=== PATIENT | male | born 2000 | race Caucasian/White ===

== ENCOUNTER 2020-01-01 05:59 | Emergency (ER) | payer OTHER ==
[~2020-01-01] VITALS: Ht 175.3 cm; Wt 65.8 kg
[~2020-01-01 05:59] MED LIST: ADDERALL 20 MG20 M1 PO; CATAPRES0.1 MG PO; FOCALIN XR20 MG PO; RISPERDAL2 MG PO
[2020-01-01 06:03] VITALS: BP 103/49
[2020-01-01] MEDS ORDERED: AUGMENTIN 875-1 EACH PO (06:08)
== END 2020-01-01 06:29 | disposition home or self-care (01) ==
LOC: M.ERS 05:59
DX: S01.01XA Laceration without foreign body of scalp, initial encounter (principal); S41.152A Open bite of left upper arm, initial encounter; F90.9 Attention-deficit hyperactivity disorder, unspecified type; Z88.8 Allergy status to other drugs, medicaments and biological substances; Y04.1XXA Assault by human bite, initial encounter; Y93.89 Activity, other specified; Y92.89 Other specified places as the place of occurrence of the external cause; Y99.8 Other external cause status

== ENCOUNTER 2020-02-06 21:36 | Emergency (ER) | payer OTHER ==
[~2020-02-06] VITALS: Ht 175.3 cm; Wt 69.4 kg
[~2020-02-06 21:36] MED LIST changes: +AUGMENTIN 875-1 EACH PO
[2020-02-06 22:23] LABS: URINE BILIRUBIN NEGATIVE (Negative); URINE BLOOD NEGATIVE (Negative); URINE CLARITY CLEAR; URINE COLOR YELLOW; URINE GLUCOSE-RANDOM NEGATIVE (Negative); URINE KETONES NEGATIVE (Negative); URINE LEUKOCYTES NEGATIVE (Negative); URINE NITRITE NEGATIVE (Negative); URINE PROTEIN NEGATIVE (Negative); URINE UROBILINOGEN 0.2 E.U./dl (0.2-1.0)
[2020-02-06 22:30] LABS: HEMATOCRIT 41.5 % (42.0-52.0); HEMOGLOBIN 14.2 gm/dL (14.0-18.0); MCH 30.6 pg (26.0-34.0); MCHC 34.2 g/dL (28.0-37.0); MCV 89.5 fL (80.0-100.0); MPV 8.5 fl. (7.2-11.1); RBC 4.64 mil/uL (4.50-6.00); RDW-CV 12.8 % (10.5-14.5); WBC 6.7 thou/uL (4.0-11.0)
[2020-02-06 22:37] LABS: AMP/METHAMP Negative (Negative); BARBITURATES Negative (Negative); BENZODIAZEPINES POSITIVE (Negative); COCAINE Negative (Negative); METHADONE Negative (Negative); OPIATES Negative (Negative); PCP Negative (Negative); THC POSITIVE (Negative)
[2020-02-06 22:38] LABS: CALCIUM 8.2 mg/dL (8.5-10.1); CREATININE 1.2 mg/dL (0.6-1.3); POTASSIUM 4.1 mmol/L (3.5-5.1)
[2020-02-06 22:43] LABS: ALBUMIN 3.7 g/dL (3.4-5.0); TOTAL BILIRUBIN 0.3 mg/dL (<0.1-1.0); TOTAL PROTEIN 6.6 g/dL (6.4-8.2)
[2020-02-06 23:00] LABS: ACETAMINOPHEN < 2 ug/mL (10-30); ALCOHOL < 10 mg/dL (<10); SALICYLATE < 2.8 mg/dL (2.8-20.0)
[2020-02-07 06:08] VITALS: BP 112/72
--- NOTE | 2020-02-07 15:40 | EKG ---
[place] [address] ELECTROCARDIOGRAM REPORT Name: CRISTI BECERRA Room: [facility]#: [id number] Admission: 02/06/20 Attend Phys: Discharge: 02/07/20 Date of : 89 Date of Service: 02/06/202227 Report #: [id number] THIS REPORT FOR: //name// [facility] ED Test Date: 2020-02-06 Test Time: 22:28:40 Pat Name: CRISTI BECERRA Department: Room: Gender: Relay Adjuster: DERECK : 2000 Requested By: Amaya Ramsay Order Number: [id number] MD: Salvatore Jean Measurements Intervals [place] Rate: 70 P: 77 SC: 173 QRS: 70 QRSD: 78 T: 47 QT: 373 QTc: 403 Interpretive Statements Sinus rhythm ST elev, probable normal early repol pattern Compared to ECG 09/24/2013 19:24:15 ST (T wave) deviation now present Sinus arrhythmia no longer present Electronically Signed On 02-07-2020 15:39:47 CDT by Salvatore Jean [email or web address] <ELECTRONICALLY SIGNED> By: Salvatore Jean MD, [facility] 02/07/20 1539 [id number] Salvatore Jean MD, [facility] /EPI
== END 2020-02-07 06:08 | disposition still patient (30) ==
LOC: M.ERS 21:36
PROVIDERS: Personal Emergency Response Attendant
DX: T42.4X1A Poisoning by benzodiazepines, accidental (unintentional), initial encounter (principal); F90.9 Attention-deficit hyperactivity disorder, unspecified type; Y92.89 Other specified places as the place of occurrence of the external cause

== ENCOUNTER 2020-07-15 21:07 | Emergency (ER) | payer OTHER ==
[~2020-07-15] VITALS: Ht 175.3 cm; Wt 74.8 kg
[2020-07-15 21:45] LABS: URINE BILIRUBIN NEGATIVE (Negative); URINE BLOOD TRACE (Negative); URINE CLARITY CLEAR; URINE COLOR YELLOW; URINE GLUCOSE-RANDOM NEGATIVE (Negative); URINE KETONES NEGATIVE (Negative); URINE LEUKOCYTES NEGATIVE (Negative); URINE NITRITE NEGATIVE (Negative); URINE PROTEIN NEGATIVE (Negative); URINE UROBILINOGEN 0.2 E.U./dl (0.2-1.0)
[2020-07-15 21:50] LABS: HEMATOCRIT 40.2 % (42.0-52.0); HEMOGLOBIN 13.7 gm/dL (14.0-18.0); MCH 29.7 pg (26.0-34.0); MCHC 34.1 g/dL (28.0-37.0); MPV 7.7 fl. (7.2-11.1); RBC 4.63 mil/uL (4.50-6.00); RDW-CV 13.2 % (10.5-14.5); WBC 9.2 thou/uL (4.0-11.0)
[2020-07-15 21:53] LABS: AMP/METHAMP Negative (Negative); BARBITURATES Negative (Negative); BENZODIAZEPINES POSITIVE (Negative); COCAINE Negative (Negative); METHADONE Negative (Negative); OPIATES Negative (Negative); PCP Negative (Negative); THC POSITIVE (Negative)
[2020-07-15 21:57] LABS: CALCIUM 8.5 mg/dL (8.5-10.1); CREATININE 1.3 mg/dL (0.6-1.3); POTASSIUM 3.9 mmol/L (3.5-5.1)
[2020-07-15 22:02] LABS: ALBUMIN 3.6 g/dL (3.4-5.0); TOTAL BILIRUBIN 0.2 mg/dL (<0.1-1.0); TOTAL PROTEIN 7.7 g/dL (6.4-8.2)
[2020-07-15 22:13] LABS: ACETAMINOPHEN < 2 ug/mL (10-30); ALCOHOL < 10 mg/dL (<10); SALICYLATE < 2.8 mg/dL (2.8-20.0)
[2020-07-15 23:25] VITALS: BP 121/40
--- NOTE | 2020-07-16 14:07 | EKG ---
[place] [address] ELECTROCARDIOGRAM REPORT Name: CRISTI BECERRA Room: [facility]#: [id number] Admission: 07/15/20 Attend Phys: Discharge: 07/15/20 Date of : [birth year] Date of Service: 07/15/202117 Report #: [id number] THIS REPORT FOR: //name// [facility] ED Test Date: 2020-07-15 Test Time: 21:18:05 Pat Name: CRISTI BECERRA Department: Room: Gender: Billet Heater: [place] : 2000 Requested By: Amaya Ramsay Order Number: [id number] MD: Oswaldo Herring Measurements Intervals [place] Rate: 75 P: 68 NM: 160 QRS: 67 QRSD: 85 T: 35 QT: 364 QTc: 407 Interpretive Statements Sinus rhythm ST elev, probable normal early repol pattern Baseline wander in lead(s) I,III,aVR,aVL Compared to ECG 02/06/2020 22:28:40 No significant changes Electronically Signed On 07-16-2020 14:07:49 [employer]OTB[employer] OPERATOR by Oswaldo Herring [email or web address] <ELECTRONICALLY SIGNED> By: Tawanna Herring MD, [facility] 07/16/20 1407 17 17 Tawanna Herring MD, [facility] /EPI
== END 2020-07-15 23:27 | disposition home or self-care (01) ==
LOC: M.ERS 21:07
PROVIDERS: Personal Emergency Response Attendant
DX: T42.4X1A Poisoning by benzodiazepines, accidental (unintentional), initial encounter (principal); R41.82 Altered mental status, unspecified; Z88.8 Allergy status to other drugs, medicaments and biological substances; Y92.89 Other specified places as the place of occurrence of the external cause